=== PATIENT | male | born 1955 | race Caucasian/White ===

== ENCOUNTER 2018-07-11 18:37 | Emergency (ER) | payer BC ==
[2018-07-11] MEDS ORDERED: Morphine VIAL* 4 MG/ML VIAL (1 ml vial) IV ONE (18:58)
--- NOTE | 2018-07-11 19:01 | ED ---
Back Pain - HPI Summary HPI Summary: 63-year-old male presents with back pain since yesterday. He states that his back pain radiates to the front of the abdomen. Denies any chest pain. No SOB. no nausea or vomiting. has history of HTN and high cholesterol. He states the pain is sharp pain. He has never had this pain before. No injury. No loss of bowel or bladder or saddle anesthesia. No weakness. no pain to legs. has tried ibuprofen for the pain. He works here at [email or web address]. - History of Current Complaint Chief Complaint: EDBackInjuryPain Stated Complaint: MIDDLE BACK PAIN Time Seen by Provider: 07/11/18 18:49 Pain Intensity: 8 - Allergies/Home Medications Allergies/Adverse Reactions: Allergies Allergy/AdvReac Type Severity Reaction Status Date / Time MS Lactose Intolerance (GI) Allergy Severe Diarrhea Verified 04/05/15 07:12 [Lactose Intolerance (GI)] Home Medications: Home Medications Lisinopril 10 mg PO DAILY 07/11/18 [History Confirmed 07/11/18] Rosuvastatin Calcium 5 mg PO DAILY 07/11/18 [History Confirmed 07/11/18] PMH/Surg Hx/FS Hx/Imm Hx Endocrine/Hematology History: Denies: Hx Anticoagulant Therapy, Hx Diabetes, Hx Thyroid Disease Cardiovascular History: Denies: Hx Hypertension, Hx Pacemaker/ICD Respiratory History: Denies: Hx Asthma, Hx Chronic Obstructive Pulmonary Disease (COPD) History: Denies: Hx Renal Disease Neurological History: Denies: Hx Dementia, Hx Seizures Psychiatric History: Denies: Hx Panic Disorder, Hx Substance Abuse - Surgical History Surgery Procedure, Year, and Place: KIDNEY STONE REMOVAL AND STENTS, LEFT FOOT, HERNIA REPAIR. Jun 02 2011, fell at hospital changing parking lights- hurt left foot - broke four ribs. hardware removed in left foot Infectious Disease History: No Infectious Disease History: Denies: Hx Hepatitis, Hx Human Immunodeficiency Virus (HIV), History Other Infectious Disease, Traveled Outside the [place] in Last 30 Days - Family History Known Family History: Positive: Hypertension - Social History Alcohol Use: Occasionally Substance Use Type: Reports: Marijuana Smoking Status (MU): Never Smoked Tobacco Review of Systems Negative: Fever Negative: Chest Pain Negative: Shortness Of Breath Positive: Myalgia - back pain All Other Systems Reviewed And Are Negative: Yes Physical Exam Triage Information Reviewed: Yes Vital Signs On Initial Exam: Initial Vitals Temp Pulse Resp BP Pulse Ox 99.2 F 118 18 179/97 97 07/11/18 18:43 07/11/18 18:43 07/11/18 18:43 07/11/18 18:43 07/11/18 18:43 Vital Signs Reviewed: Yes Appearance: Positive: Well-Appearing Skin: Positive: Warm, Dry Head/Face: Positive: Normal Head/Face Inspection Eyes: Positive: Normal, Conjunctiva Clear ENT: Positive: Pharynx normal Respiratory/Lung Sounds: Positive: Clear to Auscultation, Breath Sounds Present Cardiovascular: Positive: Normal, RRR Abdomen Description: Positive: Nontender, Soft, Other: - no pulstaile mass felt Bowel Sounds: Positive: Present Musculoskeletal: Positive: Other - tenderness thoracic back Neurological: Positive: Normal Psychiatric: Positive: Normal Diagnostics - Vital Signs Vital Signs Temp Pulse Resp BP Pulse Ox 07/11/18 18:51 105 20 177/111 98 07/11/18 18:50 108 10 98 07/11/18 18:43 99.2 F 118 18 179/97 97 - Laboratory Result Diagrams: 07/11/18 19:05 07/11/18 19:05 Lab Statement: Any lab studies that have been ordered have been reviewed, and results considered in the medical decision making process. - Radiology chest Radiology Interpretation Completed By: ED Physician Summary of Radiographic Findings: nad - CT cta CT Interpretation Completed By: Radiologist Summary of CT Findings: IMPRESSION: 1. No aortic dissection, aneurysm, or rupture. 2. 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 3. Mild arterial atherosclerosis. 4. Bosniak type I renal cyst. No followup indicated. thoracic CT Interpretation Completed By: Radiologist Summary of CT Findings: IMPRESSION: 1. Mild multilevel thoracic spondylopathy. 2. Bosniak type I renal cyst. No followup indicated. - EKG No standard instances Cardiac Rate: NL EKG Rhythm: Sinus Rhythm EKG Comparison: No Significant Change Summary of EKG Findings: sinus rhythm Re-Evaluation - Re-Evaluation First Eval Re-Evaluation Time: 20:55 Change: Improved Comment: pain improved with morphine, blood pressure decreased Second Eval Re-Evaluation Time: 21:44 Comment: discussed results, will give muscle relaxer for pain Back Pain Course/Dx - Course Course Of Treatment: 63 year male presents with back pain for 2 days. radiates to front of abdomen. no n/v. admits to constipation. no chest pain or SOB. on exam tenderness thoracic back. nontender abd. has high blood pressure. pain decreased with morphine. blood pressure also decreased. CTA normal. possible median arcuate syndrome but this does not fit with patient current symptoms. warned about symptoms of such and to follow up with primary. discussed will give muscle relaxer and lidocaine patch for pain. patient understand and agrees with plan. - Diagnoses Differential Diagnosis/HQI/PQRI: Positive: Aneurysm, Herniated Disc, Strain Provider Diagnoses: Thoracic back pain Discharge - Sign-Out/Discharge Documenting (check all that apply): Patient Departure - Discharge Plan Condition: Good Disposition: HOME Prescriptions: Cyclobenzaprine TAB* [Flexeril 10 MG TAB*] 10 mg PO TID PRN #15 tab PRN Reason: Pain Lidocaine PATCH 5%* [Lidoderm 5% Patch*] 1 patch TRANSDERM DAILY #5 patch Patient Education Materials: Back Pain (ED) Forms: *Work Release Referrals: Sandoval Simmons MD [Primary Care Provider] - Additional Instructions: Take muscle relaxers three times a day Apply lidocaine patches to area for up to 12 hours in one 24 hour period Use ibuprofen or Tylenol for pain every 6 hours ice/heat area, move as much as possible Follow up with primary within 5 days Return to ED if develop any new or worsening symptoms - Billing Disposition and Condition Condition: GOOD Disposition: Home
[2018-07-11 19:16] LABS: ABS Basophils 0.1 10^3/ul (0-0.2); ABS Eosinophils 0.5 10^3/ul (0-0.6); ABS Lymphocytes 1.8 10^3/ul (1.0-4.8); ABS Monocytes 1.2 10^3/ul (0-0.8); ABS Neutrophils 8.5 10^3/ul (1.5-7.7); ABS Nucleated RBC 0 10^3/ul; Eosinophil % 4.1 %; Hematocrit 44 % (42-52); Hemoglobin 14.9 g/dl (14.0-18.0); Mean Corpuscular HGB Conc 34 g/dl (31-36); Mean Corpuscular Hemoglobin 32 pg (27-31); Mean Corpuscular Volume 94 fL (80-94); Mean Platelet Volume 7.3 fL (7.4-10.4); Nucleated Red Blood Cells % 0.1; Platelet Count 276 10^3/ul (150-450); Red Blood Count 4.65 10^6/ul (4.00-5.40); Red Cell Distribution Width 13 % (10.5-15)
[2018-07-11 19:32] LABS: Activated Partial Thrombo Time 30.5 seconds (26.0-36.3); INR 0.9 (0.77-1.02)
[2018-07-11 19:33] LABS: Albumin 4.2 g/dL (3.2-5.2); Albumin/Globulin Ratio 1.4 (1-3); BUN/Creatinine Ratio 17.7 (8-20); C Reactive Protein 15.2 mg/L (<8.01); Calcium 9.7 mg/dL (8.6-10.3); EGFR African American 96.4 (>60); EGFR Non-African American 79.6 (>60); Globulin 2.9 g/dL (2-4); Potassium 4.3 mmol/L (3.5-5.0); Total Bilirubin 0.5 mg/dL (0.2-1.0); Total Protein 7.1 g/dL (6.4-8.9)
[2018-07-11 19:35] LABS: Troponin I 0.01 ng/mL (<0.04)
[2018-07-11] MEDS ORDERED: Iodixanol* (CONTRAST) 320 MG/ML 100 ML SDV IV ONE (19:40)
[2018-07-11] MEDS ORDERED: Cyclobenzaprine TAB* 10 MG PO ONE (21:41)
[2018-07-11 21:53] VITALS: BP 147/89
[2018-07-11] MEDS ORDERED: Lidocaine PATCH 5%* 1 PATCH TRANSDERM SCH (22:00)
== END 2018-07-11 22:15 | disposition home or self-care (01) ==
LOC: ED 18:37
DX: M54.9 Dorsalgia, unspecified (principal); Z87.442 Personal history of urinary calculi
CPT/HCPCS: 36415; 71045; 71275; 72128; 74174; 80053; 84484; 85025; 85610; 85730; 86140; 93005; 96374; 99283; A9270-GY; J2270; Q9967